=== PATIENT | female | born 1970 | race Caucasian/White ===

== ENCOUNTER 2018-04-27 14:33 | Day surgery (SDC) | payer OTHER ==
[2018-04-26 10:23] VITALS: BMI 25.6
[2018-04-27] MEDS ORDERED: fentaNYL CITRATE 250 MCG/5 ML VIAL ONE (15:44)
[2018-04-27] MEDS ORDERED: ROCURONIUM BROMIDE 50 MG/5 ML VIAL ONE ×2 (15:45→16:02)
[2018-04-27] MEDS ORDERED: LIDOCAINE HCL/PF 2% SDV 5ML VIAL ONE (15:45)
[2018-04-27] MEDS ORDERED: MIDAZOLAM HCL 2 MG/2 ML SINGLE DOSE VIAL ONE ×2 (15:45→16:02)
[2018-04-27] MEDS ORDERED: PROPOFOL 20 ML ONE ×2 (15:45→16:01)
[2018-04-27] MEDS ORDERED: SUCCINYLCHOLINE CHLORIDE 200 MG/10 ML VIAL ONE (16:01)
[2018-04-27 16:03] VITALS: BP 134/78; PULSE 80; TEMP 98.4
[2018-04-27] MEDS ORDERED: LIDOCAINE HCL 1%, 10 MG/ML (20ML VIAL) ONE (16:38)
[2018-04-27] MEDS ORDERED: BUPIVACAINE HCL/PF 0.25% (2.5MG/ML) 10 ML VIAL ONE (16:38)
== END 2018-04-27 18:08 | disposition home or self-care (01) ==
LOC: JASUSAT 14:33
PROVIDERS: ATTEND Surgery
PROC: 0WJP4ZZ Inspection of Gastrointestinal Tract, Percutaneous Endoscopic Approach (ICD-10-PCS; principal; 2018-04-27)
DX: Z53.8 Procedure and treatment not carried out for other reasons (principal)
CPT/HCPCS: 36415; 84702; 84703